=== PATIENT | male | born 1955 | race Hispanic/Latino ===

== ENCOUNTER 2021-08-12 20:50 | Emergency (ER) | payer OTHER ==
[~2021-08-12] VITALS: Ht 172.7 cm; Wt 95.3 kg
[2021-08-12] MEDS ORDERED: BACITRACIN ZINC 0.9GM TP ONE ×2 (22:30→22:42)
[2021-08-12] MEDS ORDERED: AUGMENTIN 500-1 EACH PO (23:02)
[2021-08-12] MEDS ORDERED: TETANUS/DIPHTHERIA TOX ADULT 0.5 ML SYR IM ONE (23:15)
[2021-08-12] MEDS ORDERED: ULTRAM50 MG PO (23:16)
[2021-08-12] MEDS ORDERED: TETANUS/DIPHTHERIA TOX ADULT 0.5 ML SYR ONE (23:24)
== END 2021-08-13 00:16 | disposition home or self-care (01) ==
LOC: FSED 21:23
DX: S51.851A Open bite of right forearm, initial encounter (principal); S61.551A Open bite of right wrist, initial encounter; I10 Essential (primary) hypertension; W54.0XXA Bitten by dog, initial encounter; Y92.098 Other place in other non-institutional residence as the place of occurrence of the external cause
CPT/HCPCS: 90471; 90714; 99283